=== PATIENT | male | born 1960 | race Caucasian/White ===

== ENCOUNTER 2016-08-21 14:12 | Inpatient (IN) ==
[2016-08-21] MEDS ORDERED: SALINE LOCK IV FLUID XX ONE (14:38)
[2016-08-21 15:10] LABS: ALBUMIN 4.4 g/dL (3.5-5.0); CALCIUM 8.8 mg/dL (8.8-10.2); POTASSIUM 3.6 mmol/L (3.5-5.1); TOTAL BILIRUBIN 0.5 mg/dL (0.20-1.00); TOTAL PROTEIN 7.2 g/dL (6.3-8.3)
[2016-08-21 15:12] LABS: INR 1.16 (0.86-1.15); PROTIME 15.1 Seconds (12.1-15.5); PTT PL 28.1 Seconds (22.6-43.9)
[2016-08-21] MEDS ORDERED: GLUCOPHAGE PO SCH (17:00)
[2016-08-21] MEDS: HUMULIN R (PARKWAY) SUBQ SCH ×2 (17:01→21:52)
[2016-08-21] MEDS: KLONOPIN PO SCH (17:25)
[2016-08-21] MEDS: LOVENOX SUBQ SCH (17:26)
[2016-08-21] MEDS ORDERED: CATAPRES PO ONE (17:53)
[2016-08-21] MEDS ORDERED: CATAPRES PO PRN (18:04)
--- NOTE | 2016-08-21 18:39 | HISTORY AND PHYSICAL ---
CHIEF COMPLAINT: Leg pain. Ankle swollen. HISTORY OF PRESENT ILLNESS: This is a 56-year-old, white male that historically has had great resistance to medical care. He has a great deal of anxiety towards the medical profession and medical illnesses. He has had a known history of poorly-controlled diabetes, hypertension. He has been very resistant to taking medications. Recently, however, he presented to the office on August 13. He stated that his blood pressures have been high. Blood pressure in the office at that time was 211/102. He, however, stated he felt good. He had no major complaints. He had diarrhea for several days. He had cut back on his blood pressure medicines from lisinopril 20 mg twice a day to once a day and Toprol-XL 100 mg 1 a day to 1/2 a day. Laboratory data was obtained which revealed a blood sugar of 183, potassium 2.8, creatinine of 1.9 which had previously been 0.6, and his PSA was 9.9. His blood pressure slowly declined with the reinstitution of lisinopril 20 mg b.i.d. and Toprol-XL 100 mg a day. He developed over the course of the next several days swelling of his ankles. He did have some pain in his legs but he primarily pointed to pain in the Achilles heel area. He presented back to my office on the day of admission where he was found to be in no acute distress. His blood pressure was 159/110. He did have a slight amount of edema 1+ of the ankles. He had negative Homans signs of the calves. He was sent to [facility] for Doppler flow study of the lower extremities where the Doppler revealed bilateral DVTs. He was subsequently admitted for further evaluation and therapy. PAST SURGICAL HISTORY: None. MEDICAL ILLNESSES: Recent history of hypertension, diabetes. CURRENT MEDICATIONS: Metformin 1000 mg b.i.d., lisinopril 20 mg b.i.d., Toprol-XL 100 mg daily, aspirin 81 mg daily. ALLERGIES: No known drug allergies. SOCIAL HISTORY: He is a , white male. He has 2 daughters and 1 son. He does not smoke. Occasionally he has a beer. 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 He worked 12 hour days 6 days a week. FAMILY HISTORY: His mom recently at age approximately 88 years old. He has 1 sister, Deisy, who also has diabetes. His dad at age 36 of unknown causes perhaps aspiration. PHYSICAL EXAMINATION: GENERAL: Shows a slightly obese, white male who is awake, alert, in no acute distress. VITAL SIGNS: Temperature is 97 degrees, pulse 77, respirations 18, O2 saturation 98%, blood pressure 159/100, weight 205 pounds, height 5 feet 3 inches. HEENT: TMs are clear. Pupils are equally round and reactive. Nasal mucosa is moist. Fundi benign. Oropharynx is clear. NECK: Supple with good carotid pulses. No bruits. LUNGS: Clear. No wheezes, rales, rhonchi. HEART: Regular rate and rhythm. ABDOMEN: Rotund, soft, nontender. GENITOURINARY: Normal male. Bilaterally descended testicles. No hernias. Femoral arteries show 2+ pulses. No bruits. There is no venous distention of the groin. LOWER EXTREMITIES: Show 1+ edema of the malleolar areas bilaterally. He has negative Homans signs bilaterally. The right calf measures 39.5 cm, 10 cm below the anterior tibial tubercle; the left 40 cm in the same area. There are no dilated veins, etc. There is mild tenderness in the popliteal space bilaterally left greater than the right. LABORATORY DATA: As stated, Doppler flow studies at [facility] revealed bilateral deep vein thrombosis acute. It extends above the popliteal area into the saphenous vein area. PT/INR 15.1/1.16, sodium was 141, potassium 3.6, chloride 103, CO2 21, BUN 24, creatinine 2.7, glucose 164, calcium 8.8, total bilirubin 0.5, AST 14, ALT 13, alkaline phosphatase 5, total protein 7.2, albumin 4.4, globulin 3.3. IMPRESSION: 1. A 56-year-old, white male now with acute deep vein thromboses of both lower extremities. 2. Chronic kidney disease with perhaps acute renal injury due to hypertension. Creatinine has risen from 0.6 to 2.7. 3. Long history of poorly controlled diabetes. Recent hemoglobin A1c was 9.1. 4. Elevated PSA of 9.9. 5. Hypertension poorly controlled. PLAN: 1. Admit to [facility]. 2. Bed rest. 3. Subcutaneous Lovenox q.12 hours 1 mg/kg. 4. We will hydrate. 5. Follow his renal function carefully. 6. We will do a hypercoagulation profile. 7. I see no evidence for PE or anything of that nature. 8. He will certainly need to become more compliant with his health issues. cc: Jaren Huffman MD
[2016-08-21] MEDS: TOPROL XL PO SCH (18:42)
[2016-08-21] MEDS: COUMADIN PO SCH (21:51)
[2016-08-21] MEDS: TYLENOL PO PRN (21:52)
[2016-08-21] MEDS: NS 1,000 ML IV PRN (21:52)
[2016-08-21 22:24] LABS: URINE SOURCE CLEAN CATCH
[2016-08-21 22:44] LABS: BILIRUBIN URINE NEGATIVE (NEGATIVE); BLOOD URINE TRACE (NEGATIVE); CLARITY CLEAR (CLEAR); LEUKOCYTES URINE NEGATIVE (NEGATIVE); NITRITE URINE NEGATIVE (NEGATIVE); PROTEIN URINE NEGATIVE (NEGATIVE); URINE MICROSCOPIC NEEDED? YES; UROBILINOGEN URINE NORMAL
[2016-08-21 22:54] LABS: COLOR STRAW; URINE EPITHELIAL CELLS <10 /HPF (<10); URINE RBC <10 /HPF (<10); URINE WBC <10 /HPF (<10)
[2016-08-22] MEDS: LOVENOX SUBQ SCH (05:46)
[2016-08-22 06:27] LABS: MANUAL DIFF NEEDED? NO
[2016-08-22] MEDS: HUMULIN R (PARKWAY) SUBQ SCH ×4 (06:41→21:18)
[2016-08-22 06:42] LABS: BASO% 0.1 % (0.0-0.8); EOS# 0.08 X1000 (0.0-0.7); EOS% 0.9 % (0.0-10.0); HEMATOCRIT 32.4 % (42.0-52.0); HEMOGLOBIN 10.8 g/dL (14.0-18.0); IMM GRAN# 0.06 X1000 (0.0-0.04); IMM GRAN% 0.7 % (0.0-0.5); LYMPH# 2.08 X1000 (1.2-3.4); LYMPH% 23.8 % (20.5-51.1); MCH 30.6 PG (27-31); MCHC 33.3 g/dL (33-37); MCV 91.8 FL (81-99); MONO# 1.47 X1000 (0.11-0.59); MONO% 16.8 % (1.7-9.3); MPV 11.2 FL (7.4-10.4); NEUT% 57.7 % (42.2-75.2); PLT 152 X1000 (130-400); RBC 3.53 XMIL (4.7-6.1)
[2016-08-22 07:15] LABS: ALBUMIN 3.7 g/dL (3.5-5.0); CALCIUM 8.1 mg/dL (8.8-10.2); POTASSIUM 4.4 mmol/L (3.5-5.1); TOTAL BILIRUBIN 0.4 mg/dL (0.20-1.00); TOTAL PROTEIN 6.3 g/dL (6.3-8.3)
[2016-08-22] MEDS: TOPROL XL PO SCH (08:25)
[2016-08-22] MEDS: KLONOPIN PO SCH ×3 (08:25→16:38)
[2016-08-22] MEDS ORDERED: PRINIVIL PO SCH (09:00)
--- NOTE | 2016-08-22 10:24 | PROGRESS NOTE ---
DATE: 08/22/2016 CHIEF COMPLAINT: No problems. PHYSICAL EXAMINATION: Vital signs: Temperature 98.2 degrees. Blood pressures have been 136/72, 155/84, 154/81. O2 saturations 98% on room air. Urine output yesterday was 700 mL; this morning 100 mL. LABORATORY DATA: White blood count is 8.73, hemoglobin and hematocrit 10 and 32, MCV 91.8. Chemistries sodium 141, potassium 4.4, chloride 107, CO2 22, BUN of 34, creatinine 3.3 up from 24 and 2.7 yesterday. Blood sugar this morning 121. Renal sonogram is pending. PHYSICAL EXAM: General: The patient is examined is at bedside. Patient is awake, alert. He looks good, he has no complaints. Lungs: Clear. Heart: With a regular rate and rhythm. Abdomen: Slightly rotund slightly distended. Positive bowel sounds. Nontender. Genitourinary: Normal male Musculoskeletal: Neurologically intact with no peripheral edema, clubbing or cyanosis. IMPRESSION: 1. Bilateral deep vein thrombosis of the lower extremities. Please see Doppler flow study report. 2. Acute renal failure with rising creatinine now up to 3.3, most likely related to hypertensive and diabetic nephropathy with acute injury. 3. He does have a known elevated PSA as noted in the history and physical. Patient is contemplating our recommendations to have the urologist evaluate him. We will obtain a postvoid urine this morning and follow up with the renal sonogram to be sure we do not have any postobstructive renal failure due to enlarged prostate. 4. Long time diabetes with poor control. Patient is on flat sliding scale insulin. Blood sugar this morning was 121. PLAN: 1. We will continue subcutaneous Lovenox. 2. Coumadin was started last evening. Will continue that. 3. I have discussed Mr. Bishop with Dr. Quinteros's nurse-practitioner and they will see the patient in consultation. 4. We will follow up with sonogram of the kidneys, 5. Postvoid residual. 6. Continue sliding scale insulin. 7. I have discussed all these findings with the family at bedside. cc: Jaren Huffman MD
[2016-08-22] MEDS: NS 1,000 ML IV PRN (11:33)
--- NOTE | 2016-08-22 13:30 | CONSULTATION ---
DATE OF CONSULTATION: 08/22/2016 REASON FOR ADMISSION: Bilateral deep VT. REASON FOR CONSULTATION: Acute kidney injury. CONSULTING PHYSICIAN: Dr. Huffman. HISTORY OF PRESENT ILLNESS: This is a 56-year-old gentleman with a long history of hypertension as well as diabetes. He states he has known about his hypertension for at least 10 years and has been on medication for about 4. He states that he has known about his diabetes for about 4 years as well. He denies any neuropathy or retinopathy secondary to his diabetes. He states that his blood sugars and blood pressures are fairly poorly controlled. He was seen by his primary care office on the 3rd of this month. At that time he had been having elevated blood pressure. He had been having some diarrhea. He has decreased his blood pressure medications without medical instruction at that time as well. In the office it was noted that his creatinine was 1.9. It was 0.6 less than 6 months ago and he did have an elevation of PSA. His blood pressure medications were restarted at that time. Over the course of the next several days he began having lower extremity edema and pain. He presented back to the primary's office where he was sent to have Doppler studies of bilateral lower extremities which revealed DVTs bilaterally. He was admitted to the hospital for further workup and treatment. On admission his creatinine at that time was 2.7 and today has risen to 3.3. He has stated that over the last week his urine output has become much more frequent. He does have foamy urine. He states that he has to get up at night 10-15 times to go to the bathroom. He denies any other current nausea or vomiting, and just a general feeling of malaise. PAST MEDICAL HISTORY: Past medical history as above. PAST SURGICAL HISTORY: None. CURRENT ALLERGIES: No known drug allergies. HOME MEDICATIONS: 1. Metformin. 2. Lisinopril. 3. Toprol. 4. Aspirin. FAMILY HISTORY: He has a sister who has diabetes but no family history of end- stage renal disease. SOCIAL HISTORY: He is . Denies ever smoking. Occasional ETOH. He continues to work. REVIEW OF SYSTEMS: Pertinent positives noted above in the HPI. PHYSICAL EXAMINATION: Vital Signs: Temperature 98.2 degrees, pulse regular. Blood pressure 136/72. Intake 420 mL, output 700 mL. General: This is a middle-aged gentleman resting in bed. He is awake, alert, oriented x4. He is able to give an appropriate history and assists with exam. HEENT: Normocephalic atraumatic. PERRL, conjunctivae pink. His oral mucosa is moist. Tongue is midline. Neck: Supple. Trachea midline. There is no JVD noted in a reclined position. Cardiovascular: Reveals a regular rate and rhythm. There is no murmur or gallop appreciated. Pulmonary: He has equal excursion. He has clear breath sounds. He is on room air with no increased work of breathing. Abdomen: Round, slightly distended. The patient states this is normal for him. Positive bowel sounds. : Not inspected. He is voiding. Of note postvoid residual greater than 900. Extremities: No clubbing, cyanosis or edema. There is no stigmata noted to the soles of the feet or up to the toes. He has positive pulses. He is moving all extremities and has been able to stand up without assistance. Integumentary: Skin is warm and dry. There is no rash or lesion appreciated. LAB DATA: WBC of 8.7, hemoglobin 10.8, platelets 152,000, sodium 142, potassium 4.4, chloride 107, CO2 22, BUN 34, creatinine 3.3, albumin 4.4. Alkaline phosphatase 5. ASSESSMENT AND PLAN: 1. Acute kidney injury. Obstruction. Patient does have elevated prostate- specific antigen. Patient has some episodes of nausea, vomiting and diarrhea while on lisinopril as well. The patient does have bilateral deep venous thromboses. We have ordered urine studies. A renal ultrasound was previously ordered this morning. The patient initially refused to have this done, but is now willing for the exam. He has no uremic symptoms and no indications for an emergent dialysis at this time. 2. Postvoid residual elevated prostate-specific antigen; patient had a postvoid residual reported by the nurse greater than 900. The patient is refusing a Molina. Again, we are waiting for the results of the renal ultrasound to rule out any hydronephrosis. 3. Hypertension. His lisinopril currently is held and blood pressure is being controlled with Catapres and Toprol. We agree with this and will make no change. 4. Fluid volume, he is not overloaded. 5. Electrolytes, acid-base balance, anemia. These are all within target. Thank you for the consult. Seen, data reviewed, discussed with Genesis Bass on 08/22/16. I agree with the above assessment and plan of care. rg Dictated by TIN Clemens for Austyn Quinteros MD cc: MD Jaren Camargo MD [facility]
[2016-08-22] MEDS ORDERED: LEVAQUIN PO SCH (13:45)
[2016-08-22] MEDS ORDERED: MORPHINE IV PRN (13:46)
[2016-08-22] MEDS: FLOMAX PO SCH ×2 (14:31→20:20)
[2016-08-22 14:56] LABS: UR CREAT RANDOM 37.3 mg/dL (14-26); UR PROT RANDOM 6.5 mg/dL
--- NOTE | 2016-08-22 15:14 | Diag Imaging Result Document ---
PROCEDURE NAME: US RENAL 2 (RETROPER) COMPLETE - 08/22/2016 RENAL ULTRASOUND: INDICATION: Acute renal failure. FINDINGS: The right kidney measures 13.4 x 6.6 x 6.9 cm. The left kidney measures 13.3 x 7.1 x 7.9 cm. There is moderate bilateral hydronephrosis, left greater than right. There is marked distention of the urinary bladder. Decompression is recommended. IMPRESSION: 1. Findings suspicious for bladder outlet obstruction/urinary retention and bilateral hydronephrosis. 2. Findings were discussed with Dr. Huffman. MTDD
[2016-08-22] MEDS: TYLENOL PO PRN (17:23)
[2016-08-22] MEDS: COUMADIN PO SCH (20:20)
[2016-08-22] MEDS ORDERED: AMBIEN PO PRN (20:22)
[2016-08-22] MEDS ORDERED: NORCO-5 PO PRN (20:23)
[2016-08-22] MEDS: HYTRIN PO SCH (21:19)
[2016-08-23] MEDS: NS 1,000 ML IV PRN (00:20)
[2016-08-23] MEDS: HUMULIN R (PARKWAY) SUBQ SCH ×4 (06:25→20:44)
[2016-08-23 07:07] LABS: MANUAL DIFF NEEDED? NO
[2016-08-23 07:32] LABS: BASO% 0.1 % (0.0-0.8); EOS# 0.05 X1000 (0.0-0.7); EOS% 0.6 % (0.0-10.0); HEMATOCRIT 36.3 % (42.0-52.0); HEMOGLOBIN 12.5 g/dL (14.0-18.0); IMM GRAN# 0.04 X1000 (0.0-0.04); IMM GRAN% 0.5 % (0.0-0.5); LYMPH# 1.54 X1000 (1.2-3.4); MCH 31.2 PG (27-31); MCHC 34.4 g/dL (33-37); MCV 90.5 FL (81-99); MONO# 1.05 X1000 (0.11-0.59); MONO% 13.6 % (1.7-9.3); MPV 11.1 FL (7.4-10.4); NEUT% 65.2 % (42.2-75.2); PLT 147 X1000 (130-400); RBC 4.01 XMIL (4.7-6.1)
[2016-08-23 08:06] LABS: AGAP 17; ALBUMIN 3.8 g/dL (3.5-5.0); BUN 15 mg/dL (8-22); CALCIUM 8.6 mg/dL (8.8-10.2); CHLORIDE 109 mmol/L (98-107); COSMO 295; POTASSIUM 3.8 mmol/L (3.5-5.1); SODIUM 145 mmol/L (136-145); TCO2 19 mmol/L (25-35)
[2016-08-23] MEDS: ACTOS PO SCH (09:07)
[2016-08-23] MEDS: KLONOPIN PO SCH ×3 (09:07→17:07)
[2016-08-23] MEDS: LOVENOX SUBQ SCH (09:08)
[2016-08-23] MEDS: TOPROL XL PO SCH (09:08)
[2016-08-23] MEDS: FLOMAX PO SCH ×2 (09:08→20:41)
[2016-08-23 11:45] LABS: INR 1.18 (0.86-1.15); PROTIME 15.3 Seconds (12.1-15.5)
--- NOTE | 2016-08-23 13:12 | PROGRESS NOTE ---
DATE: 08/23/2016 CURRENT TIME: 1250 hours. CHIEF COMPLAINT: Feels great. No problems. VITAL SIGNS: Temperature is 97.6 degrees, pulse 93, blood pressure has been 127/75, 121/66, 162/98, 154/85. O2 is 96% on room air. Urine output today has been 2900 mL. Yesterday was 55955 mL. LABORATORY DATA: White blood count 7.70, hematocrit and hematocrit are 12 and 36, MCV is 90.5, platelets 147,000. Sodium 145, potassium 3.8, CO2 109, BUN 15 creatinine is 1.0. Blood sugars 121, 129, 155, 232, 154. Urine culture shows no growth at this time. PHYSICAL EXAMINATION: General: The patient is awake, alert, very talkative. Feels well. Family is at bedside. Lungs: Clear. Heart: Regular rate and rhythm. Abdomen: Soft, nontender. Good femoral pulses. Genitourinary: Normal male. Indwelling Molina. Molina is draining clear urine. Musculoskeletal: No peripheral edema. IMPRESSIONS: 1. Bilateral deep vein thromboses. Now on subcutaneous Lovenox and oral Coumadin. Will begin the transition phase, stopping the Lovenox and starting Coumadin totally tomorrow. His INR today is 1.18. 2. Postobstructive renal failure due to an enlarged prostate. His creatinine has dropped from 3.3 to 1.0 following catheterization of the bladder. 3. Diabetes mellitus. Poorly controlled. Now controlled. Seems to be doing well with sliding scale insulin and oral Actos. 4. He will probably need to go home with the indwelling Molina and follow up with the urologist next week. He will have to have further evaluation regarding his elevated PSA once things have settled down. All of these things have been discussed with the family and patient at bedside. cc: Jaren Huffman MD
--- NOTE | 2016-08-23 15:39 | PROGRESS NOTE ---
DATE: 08/23/2016 SUBJECTIVE: Patient sitting up in bed. He states that he feels significantly better today. He had a Molina catheter placed yesterday and apparently diuresed greater than 10 L. OBJECTIVE: Vital Signs: Temperature 97.6 degrees, pulse 93, respiratory rate 18, blood pressure 154/85. Intake 240 mL. Output charted at 15 L. General: Middle-aged gentleman resting in bed. No acute distress. HEENT: Normocephalic, atraumatic. His oral mucosa is moist. Neck: Supple. There is no JVD. Cardiovascular: Regular rate and rhythm. There is no murmur or gallop appreciated. Pulmonary: He is clear bilaterally. He remains on room air with no increased work of breathing. Abdomen: Round, soft today. Less distended. Positive bowel sounds. : Not inspected. He has a Molina. He continues to diurese. Extremities: No clubbing , cyanosis or edema. Integumentary: Skin is warm and dry without other rash or lesion. LABORATORY DATA: WBC of 7.7, hemoglobin 12.5, creatinine 1, potassium 3.8, CO2 19. ASSESSMENT AND PLAN: Acute kidney injury secondary to hydronephrosis. He had a renal ultrasound that showed bilateral hydronephrosis yesterday. He had a bladder outlet obstruction. He had a Molina catheter placed yesterday. He began to diurese nicely and today his renal function has returned to normal. We will sign off at this time. Thank you for allowing us to participate in the care of this gentleman. If we can be of further assistance, please to not hesitate to contact us. Seen, data reviewed, discussed with Genesis Bass on 08/23/16. I agree with the above assessment and plan of care. rg Dictated by TIN Clemens for Austyn Quinteros MD cc: MD Jaren Camargo MD MTDD
[2016-08-23] MEDS: HYTRIN PO SCH (20:40)
[2016-08-23] MEDS: COUMADIN PO SCH (20:41)
[2016-08-24] MEDS: HUMULIN R (PARKWAY) SUBQ SCH ×2 (06:40→10:54)
[2016-08-24 06:41] LABS: HEMATOCRIT 36.6 % (42.0-52.0); HEMOGLOBIN 12.7 g/dL (14.0-18.0); MCH 31.4 PG (27-31); MCHC 34.7 g/dL (33-37); MCV 90.6 FL (81-99); MPV 10.6 FL (7.4-10.4); RBC 4.04 XMIL (4.7-6.1)
[2016-08-24 06:49] LABS: INR 1.47 (0.86-1.15); PROTIME 18.1 Seconds (12.1-15.5)
[2016-08-24 06:58] LABS: AGAP 12; ALBUMIN 3.8 g/dL (3.5-5.0); BUN 10 mg/dL (8-22); CALCIUM 8.3 mg/dL (8.8-10.2); CHLORIDE 107 mmol/L (98-107); COSMO 286; POTASSIUM 3.6 mmol/L (3.5-5.1); SODIUM 141 mmol/L (136-145); TCO2 22 mmol/L (25-35)
[2016-08-24] MEDS ORDERED: LEVAQUIN PO SCH (09:00)
[2016-08-24] MEDS: TOPROL XL PO SCH (09:17)
[2016-08-24] MEDS: FLOMAX PO SCH (09:17)
[2016-08-24] MEDS: KLONOPIN PO SCH (09:17)
[2016-08-24] MEDS: ACTOS PO SCH (09:18)
[2016-08-24] MEDS: LOVENOX SUBQ SCH (09:18)
--- NOTE | 2016-08-24 10:29 | PROGRESS NOTE ---
DATE: 08/24/2016 CURRENT TIME: 0930 hours. CHIEF COMPLAINT: None. OBJECTIVE: Vital signs: Temperature is 97.8 degrees. Pulse is 98, 104, and 110. Blood pressure 131/77, 115/71, 132/92. O2 sats 98% on room air. Intake and Output: Urine output for the last 24 hours is 9000 mL. LABORATORY DATA: White blood cell count 7.35. Hematocrit 12 and 36. Sodium 141. Potassium 3.6. BUN 10. Creatinine 0.8. Glucose 169. INR is 1.47. PHYSICAL EXAMINATION: General: The patient is awake and alert. is at bedside. He denies any complaints. Lungs: Clear. Heart: Regular rate and rhythm. Abdomen: Soft. He is markedly less distended. Genitourinary: Normal male. Indwelling Molina. The collecting tube is full of clear urine. Musculoskeletal: No edema. IMPRESSION: 1. Deep venous thrombosis, now on Lovenox and Coumadin. We are transitioning him to oral Coumadin. 2. Postobstructive renal failure, corrected with Molina catheter. 3. Enlarged prostate with obstructive urodynamics. I have spoken with Dr. Santos who will see the patient next . He has instructed the patient to keep his catheter in place until , remove it on morning, and then we will check a residual urine at Dr. Santos' office. 4. Diabetes mellitus, much improved. PLAN: 1. We will discharge patient today with the above instructions. 2. He will resume his home medications. 3. We will check a PT/INR in my office on Saturday. cc: Jaren Huffman MD
[2016-08-24 11:27] VITALS: BP 130/88
--- NOTE | 2016-08-24 15:57 | DISCHARGE SUMMARY ---
ADMISSION DATE: 08/21/2016 DISCHARGE DATE: 08/24/2016 PRIMARY DISCHARGE DIAGNOSIS: Bilateral deep vein thromboses. OTHER DIAGNOSES: 1. Postobstructive uropathy/renal failure. 2. Benign prostatic hypertrophy with bladder outlet obstruction. 3. Diabetes mellitus type 2 poorly controlled. 4. Hypertension poorly controlled. PRIMARY PROCEDURE PERFORMED: Doppler flow study of the lower extremities. OTHER PROCEDURES: 1. Subcutaneous Lovenox. 2. Catheterization of the bladder. 3. Renal sonogram. 4. Postvoid residual, 5. Fingerstick blood sugars/sliding scale insulin. DISPOSITION: The patient will be discharged home. He will see me on Saturday morning for PT/INR. He will see me on for removal of Molina catheter. He will see Dr. Santos afternoon for post residual urine evaluation and further evaluation and treatment per Dr. Santos. He will resume his medications. NEW MEDICATIONS: 1. [place] 5/325, 1 q.4 hours p.r.n. 2. Warfarin 5 mg at bedtime. 3. Clonidine 0.2 mg q.2 hours p.r.n. blood pressure greater than 180/100, maximum of 3 doses in 24 hours. 4. Levaquin 500 mg daily. 5. Metoprolol succinate (Toprol-XL 100 mg daily). 6. Flomax 0.4 mg b.i.d. 7. Tylenol p.r.n. for pain. 8. Clonazepam 0.5 - 1 mg p.r.n. anxiety. 9. Metformin 1000 mg b.i.d. 10. Lisinopril 20 mg daily. 11. He was instructed not to take his Maxzide. 12. He will also be given Pyridium 200 mg t.i.d. for bladder spasm and discomfort. HISTORY OF PRESENT ILLNESS: This is a 56-year-old, white male, admitted after having been found to have bilateral DVTs. Subsequently found to have bladder outlet obstruction due to prostatitis/BPH. LABORATORY DATA: At time of discharge his INR was 1.47. At time of discharge, sodium 141, potassium 3.6, BUN and creatinine were 10 and 0.8. His creatinine had reached a peak of 3.3 prior to Molina catheterization. Blood sugar at time of discharge was 169. At time of discharge white blood count was 7.35, hemoglobin and hematocrit 12 and 36. Renal sonogram demonstrated bilateral hydroureter and hydronephrosis. The bladder was tremendously distended. HOSPITAL COURSE: The patient was admitted. His creatinine continued to rise to a peak of 3.3. Patient was very resistant to diagnostic measures but a postvoid residual did reveal over 900 cc retained urine. Patient refused Molina catheterization. Eventually he agreed to catheterization which was placed without difficulty. He quickly diuresed over [address] Austyn Quinteros saw the patient in consultation who felt like the patient did indeed have postobstructive uropathy due to BPH. His creatinine returned to normal at 0.8 at time of discharge. Blood sugar came under control. Blood pressure came under control. He diuresed greatly. Dr. Santos was consulted. Arrangements will be made for him to maintain his Molina catheter for a week. He will be discharged with a leg bag. He will see me on Saturday for PT/INR. He will also see me on to have the Molina catheterization removed morning and see Dr. Santos on afternoon. All these things were discussed with family at time of discharge. cc: Jaren Huffman MD
== END 2016-08-24 12:43 | disposition home or self-care (01) ==
LOC: P.DIRADM 14:12 → SUATTDRO 14:12 → P.MEDSURG 14:17
PROVIDERS: ADMIT Family Medicine; ATTEND Family Medicine

== ENCOUNTER 2016-11-05 14:31 | Inpatient (IN) ==
[2016-11-05] MEDS ORDERED: ASPIRIN PO STA (14:36)
--- NOTE | 2016-11-05 14:42 | EKG Report ---
Test Performed on : 11/05/2016 2:41:24 PM Test Reason : CHEST PAIN Blood Pressure : / mmHG Vent. Rate : 142 BPM Atrial Rate : 142 BPM P-R Int : 122 ms QRS Dur : 082 ms QT Int : 286 ms P-R-T Axes : 053 -20 015 degrees QTc Int : 439 ms Sinus tachycardia. Minimal voltage criteria for LVH, may be normal variant Borderline ECG No previous ECGs available Unconfirmed Result
[2016-11-05] MEDS ORDERED: MOTRIN ONE ×2 (14:57→17:18)
[2016-11-05] MEDS ORDERED: NS 1,000 ML ONE (14:57)
[2016-11-05] MEDS ORDERED: TYLENOL ONE (15:01)
[2016-11-05] MEDS ORDERED: TYLENOL PO ONE (15:06)
[2016-11-05] MEDS ORDERED: NS 1,000 ML IV ONE ×2 (15:06→17:01)
[2016-11-05 15:15] LABS: BASO% 0.1 % (0.0-0.8); HEMATOCRIT 37.8 % (42.0-52.0); HEMOGLOBIN 13.2 g/dL (14.0-18.0); IMM GRAN# 0.09 X1000 (0.0-0.04); IMM GRAN% 0.5 % (0.0-0.5); LYMPH# 0.97 X1000 (1.2-3.4); MANUAL DIFF NEEDED? NO; MCH 31.1 PG (27-31); MCHC 34.9 g/dL (33-37); MCV 88.9 FL (81-99); MONO# 3.19 X1000 (0.11-0.59); MONO% 16.3 % (1.7-9.3); MPV 11.1 FL (7.4-10.4); NEUT% 78.1 % (42.2-75.2); PLT 170 X1000 (130-400); RBC 4.25 XMIL (4.7-6.1)
[2016-11-05 15:20] LABS: INR 3.15 (0.86-1.15); PROTIME 32.2 Seconds (12.1-15.5)
[2016-11-05 15:21] LABS: PTT PL 67.7 Seconds (22.6-43.9)
--- NOTE | 2016-11-05 15:29 | Diag Imaging Result Doc PS360 ---
EXAM: CHEST-2 VIEWS HISTORY: CP TECHNIQUE: COMPARISON: 04/30/2013 FINDINGS: The lungs are well expanded. The heart is not enlarged. The vessels are not distended. There are no infiltrates. No pleural effusions. IMPRESSION: No acute abnormality. Electronically signed by Elvis Gonsalez 11/05/2016 3:26 PM
[2016-11-05 15:38] LABS: AGAP 22; ALKALINE PHOSPHATASE 81 U/L (32-122); BUN 18 mg/dL (8-22); CALCIUM 8.9 mg/dL (8.8-10.2); CHLORIDE 94 mmol/L (98-107); CK PROFILE 145 U/L (24-204); COSMO 279; GOT 20 U/L (10-34); GPT 25 U/L (10-44); POTASSIUM 3.3 mmol/L (3.5-5.1); SODIUM 133 mmol/L (136-145); TCO2 18 mmol/L (25-35); TOTAL PROTEIN 7.6 g/dL (6.3-8.3)
[2016-11-05] MEDS ORDERED: GENTAMICIN 80 MG/NS 80 MG/50 ML IVPB IV ONE (15:44)
[2016-11-05] MEDS ORDERED: MAGNESIUM SULFATE 2 GM/S.W.I. 2 GM/50 ML IVPB IV ONE (15:51)
[2016-11-05 16:28] LABS: BILIRUBIN URINE NEGATIVE (NEGATIVE); BLOOD URINE 3+ (NEGATIVE); CLARITY VERY CLOUDY (CLEAR); COLOR YELLOW; LEUKOCYTES URINE 2+ (NEGATIVE); NITRITE URINE NEGATIVE (NEGATIVE); PH URINE 6.5; PROTEIN URINE 2+(100 mg/dL) mg/dL (NEGATIVE); SP GRAVITY URINE 1.015; UROBILINOGEN URINE NORMAL
[2016-11-05 16:29] LABS: URINE CAST NONE SEEN /LPF; URINE CRYSTAL NONE SEEN /HPF; URINE CULTURE PL NEEDED? YES; URINE EPITHELIAL CELLS <10 /HPF (<10); URINE SOURCE CATH; URINE WBC 20-40 /HPF (<10)
[2016-11-05] MEDS ORDERED: ZOFRAN IV PRN ×2 (17:01→17:55)
[2016-11-05] MEDS ORDERED: DILAUDID IV PRN (17:01)
--- NOTE | 2016-11-05 17:04 | PROVIDER DOCUMENTATION ---
This chart was entered by Ale Tadeo Scribe, acting as scribe for Rachel Fox MD. HPI-General Adult - General Chief Complaint: General Adult Stated Complaint: CHEST PAIN Time Seen by Provider: 11/05/16 14:44 Source: patient Allergies/Adverse Reactions: Patient Allergies Allergy/AdvReac Type Severity Reaction Status Date / Time No Known Allergies Allergy Verified 11/05/16 14:40 Home Medications: Home Medication List Medication Instructions Recorded Confirmed Last Taken Type Clonazepam [Klonopin] 0.5 - 1 mg PO BID 08/21/16 11/05/16 Unknown History Lisinopril 20 mg PO DAILY 08/21/16 11/05/16 08/21/16 History Metformin [Glucophage] 1,000 mg PO BID 08/21/16 11/05/16 08/21/16 History Metoprolol Succinate [Toprol Xl] 100 mg PO HS 08/21/16 11/05/16 08/20/16 History Hydrocodone/APAP 5 mg/325 mg 1 each PO Q4H PRN PRN #20 mg 08/24/16 11/05/16 Unknown Rx [Orient-5] Tamsulosin [Flomax] 0.4 mg PO BID #60 capsule 08/24/16 11/05/16 Unknown Rx Finasteride 5 mg PO DAILY 11/05/16 11/05/16 Unknown History Warfarin [Coumadin] 10 - 15 mg PO QHS 11/05/16 11/05/16 Unknown History - History of Present Illness -Gen Adult Nature of Presenting Problems: 56 Y/O M presents to the ER with the complain of felling shaky, with chest pain and SOB X 5 days.pt states that he uses self cathedra at home. pt states that his took his blood pressure today and it was high and also he had diarrhea this morning X2 times. pt denies any other symptoms. Onset/Duration: reports: 5 days ago Associated Symptoms: reports: chest pain, diarrhea, shortness of breath, other ( felling shaky) Review of Systems - Adult - REVIEW OF SYSTEMS - ADULT Constitutional: reports: fever. denies: chills Eyes: reports: no symptoms reported Ears, Nose, Mouth & Throat: reports: no symptoms reported Cardiovascular: reports: chest pain. denies: heart murmur, palpitations Respiratory: reports: shortness of breath. denies: cough, wheezing Gastrointestinal: reports: diarrhea. denies: abdominal pain, nausea, vomiting Genitourinary: reports: no symptoms reported Musculoskeletal: reports: no symptoms reported Integumentary: reports: no symptoms reported Neurological: reports: no symptoms reported Psychiatric: reports: no symptoms reported Endocrine: reports: no symptoms reported Hematologic/Lymphatic: reports: no symptoms reported Allergic/Immunologic: reports: no symptoms reported All Other Systems: Reviewed and Negative Past History - Adult - PAST MEDICAL HISTORY-ADULT Review of Records: reports: Old Records Reviewed, Nursing Assessment Review - PRIOR SURGERIES/PROCEDURES Surgical/Procedure History: reports: other (DVT) - IMMUNIZATION STATUS Childhood Immunizations: See Nurse Assessment Flu Vaccine: See Nurse Assessment - SOCIAL HISTORY Substance Use: alcohol Physical Exam-General - PHYSICAL EXAM-ADULT Initial Vital Signs Reviewed: Yes - CONSTITUTIONAL General Appearance: appears well, alert - EYES Eyes: PERRL/EOMI, pink conjunctivae - HEAD, EARS, NOSE, MOUTH & THROAT HENMT: moist mucous membranes, normal ENT inspection, TMs normal - NECK Neck: non-tender, full range of motion, supple - RESPIRATORY Respiratory: no pleuratic chest pain, no respiratory distress - CARDIOVASCULAR Cardiovascular: normal peripheral pulses, regular rate, rhythm - GASTROINTESTINAL (ABDOMEN) Abdominal Exam: non tender, soft - MUSCULOSKELETAL Back Exam: no CVA tenderness, no vertebral tenderness Extremity: normal range of motion, non-tender - SKIN Integumentary: normal color, normal turgor, warm/dry - NEUROLOGIC Neurologic: grossly normal, no motor/sensory deficits - PSYCHIATRIC Psych/Mental Status: normal mood/affect, normal thought content, normal thought process, oriented x 3 Progress - PLAN OF CARE/RESULTS Progress/Plan/Lab Results: Vital Signs - 8 hr 11/05/16 14:36 Temperature 103.2 F H Pulse Rate 141 H Respiratory Rate 33 H Blood Pressure 130/89 O2 Sat by Pulse Oximetry 89 L Orders Category Date Time Status Cardiac Monitoring DIRECTED Care 11/05/16 14:36 Active Saline Loc NOW Care 11/05/16 14:36 Active CHEST-2 VIEWS [RAD] Stat Exams 11/05/16 14:36 Ordered CBC WITH ELECTRONIC DIFF [HEME] Stat Lab 11/05/16 14:36 Ordered CK PROFILE [SP CHEM] Stat Lab 11/05/16 14:36 Ordered COMPREHENSIVE METABOLIC PANEL [CHEM] Stat Lab 11/05/16 14:36 Ordered MAGNESIUM [CHEM] Stat Lab 11/05/16 14:36 Ordered PRO B-NATRIURETIC PEPTIDE Stat Lab 11/05/16 14:36 Ordered PROTIME WITH INR PL [COAG] Stat Lab 11/05/16 14:[address] [COAG] Stat Lab 11/05/16 14:36 Ordered TROPONIN T Stat Lab 11/05/16 14:36 Ordered 0.9% Sodium Chloride Inj [Ns] 1,000 ml Med 11/05/16 14:57 Discontinued .ROUTE As Directed Acetaminophen [Tylenol] Med 11/05/16 15:01 Discontinued 650 mg .ROUTE .STK-MED ONE Aspirin Med 11/05/16 14:36 Discontinued 325 mg PO STAT STA Ibuprofen [Motrin] Med 11/05/16 14:57 Discontinued 800 mg .ROUTE .STK-MED ONE EKG [EKG] Stat Ther 11/05/16 14:36 Draft Result Diagrams: 11/05/16 14:53 11/05/16 14:53 - EKG 1 Time of EKG reading by physician:: 14:42 EKG Read and Signed by:: Rachel Fox EKG Interpretation (*Must complete 3 of following elements*): Abnormal Rate: 142 Rhythm: Sinus Tachycardia Comments: Abnormal ECG - XRAY 1 XRAY: Bilateral XRAY Study: Chest Impression: Normal XRAY Interpretation: no acute abnormality by radiologist - CONSULTS/PCP/HOSPITALIST Notification #1 *Consult/PCP/Hospitalist*: Dr. beltre Time Discussed: 16:57 Reason/Comments: Dr. Fox consulted about ptto Dr. Beltre Departure - Departure Date of Disposition Decision: 11/05/16 Time of Disposition Decision: 16:33 DIAGNOSIS: UTI (urinary tract infection) Disposition: HOME 01 Certified Medical Emergency: Emergent Condition: Good Additional Freetext Instructions: ED Follow Up Instructions: You have been treated by a care provider in the Emergency Department. These instructions are being provided to you so you can have an understanding of how to care for yourself upon discharge. Upon discharge from the Emergency Department, you are responsible for making arrangements for follow-up care by a physician of your choice. Take all prescribed medications as directed. Return to the Emergency Department immediately for any new or worsening symptoms. You may call the Physician Referral phone number at [phone] to obtain a list of Physicians who are taking new patients. Referrals and Follow-Ups: Jaren Huffman MD [Primary Care Provider] - - Critical Care Note This patient required my direct & personal management of CC.: No This chart was documented by the indicated scribe, (Ale Tadeo, Uyen) and accurately reflects the services I performed and decisions made by me, Rachel Fox MD, as attested by the provider's signature.
[2016-11-05] MEDS ORDERED: MOTRIN PO ONE (17:22)
[2016-11-05] MEDS ORDERED: B & O 15A SUPP PR PRN (17:55)
[2016-11-05] MEDS ORDERED: PYRIDIUM PO PRN (17:55)
[2016-11-05] MEDS ORDERED: COUMADIN PO SCH (21:00)
[2016-11-05] MEDS: FLOMAX PO SCH (21:17)
[2016-11-05] MEDS: KLONOPIN PO SCH (21:17)
[2016-11-05] MEDS: HUMALOG DOSE (PARKWAY) SUBQ SCH (21:17)
--- NOTE | 2016-11-05 21:26 | HISTORY AND PHYSICAL ---
PRIMARY CARE PHYSICIAN: Dr. Jaren Huffman. CHIEF COMPLAINT: Generalized weakness, dizziness. HISTORY OF PRESENT ILLNESS: This is a 56-year-old male with a history of diabetes mellitus, hypertension, BPH, with bladder outlet obstruction, currently undergoing self- intermittent catheterization, who presented to the emergency room complaining of 3 days of generalized weakness, dizziness upon standing, and diarrhea that started this morning. He denies any known sick contacts. He denied any chest pain, palpitations, syncope, cough, subjective fever, chills, generalized body aches. He was found to have a temperature of a 103.2 degrees, with a heart rate of 141 on arrival. Room air saturations of 89. He was given IV hydration. Blood and urine cultures were obtained. He was given gentamicin, and he is being admitted for further evaluation and treatment. PAST MEDICAL HISTORY: Hypertension, diabetes mellitus, BPH with bladder outlet obstruction, bilateral lower extremity DVT, currently on Coumadin, transient renal failure secondary to obstruction. SOCIAL HISTORY: He denies alcohol, tobacco, or illicit drug use. He does live at home with family members. ALLERGIES: No known drug allergies. HOME MEDICATIONS: Warfarin 10 mg alternating with 15 mg every other night, Flomax 0.4 b.i.d., Toprol-XL 100 at bedtime, metformin 1000 b.i.d., lisinopril 20 mg daily, [place] 5/325 q.4 hours p.r.n., finasteride 5 daily, Klonopin 0.5 p.o. b.i.d. REVIEW OF SYSTEMS: A 14-point review of systems was discussed with the patient, with pertinent positives being generalized weakness, dizziness, diarrhea, some intermittent shortness of breath during episodes of dizziness. All other systems are negative. PHYSICAL EXAMINATION: GENERAL: This is a 56-year-old male who is lying in the bed, in no distress. VITAL SIGNS: Blood pressure 142/77, with a heart rate of 101, respirations 20, oxygen saturations are 99% on 2 L nasal cannula, 97-98% on room air, with a temperature of 101 degrees oral. HEENT: Head is normocephalic, atraumatic. Pupils equal, round, react to light. EOMs are intact. Sclerae are nonicteric. Mucous membranes are moist. NECK: Supple. Trachea midline. CARDIOVASCULAR: Regular rate and rhythm. S1, S2 appreciated. PULMONARY: Breath sounds are clear. No increased work of breathing noted. GASTROINTESTINAL: Soft, nontender, nondistended, with bowel sounds in all 4 quadrants. BACK: No CVAT. No spine tenderness. MUSCULOSKELETAL: Good range of motion of joints. EXTREMITIES: No clubbing, cyanosis, or edema. Calves are nontender. Pulses are palpable x4. SKIN: Warm and dry. DIAGNOSTIC DATA: WBC is 19.5, with hemoglobin 13.2, hematocrit 37.8, platelets of 170,000. INR is 3.15. Sodium is 133, potassium 3.3, BUN 18, creatinine 1.2, with a glucose of 283. Magnesium 1. Urinalysis has 2+ protein, with 10-20 microscopic red blood cells, 20-40 microscopic white blood cells, and 3+ bacteria. Chest x-ray revealed no acute processes. ASSESSMENT AND PLAN: 1. Febrile illness. Patient denies any known sick contacts. He had just generalized weakness, no specific symptoms. He did begin self-cath last , and on his microscopic urinalysis, he did have 20-40 white blood cells, and 3+ bacteria. Urine cultures and blood cultures have been obtained. He was treated with gentamicin. We will continue this and follow. 2. Presumed urinary tract infection. As stated above. 3. Diabetes mellitus. He will be placed on pattern blood glucose and sliding scale insulin. 4. History of hypertension. We will identify his home medicines and continue. 5. Leukocytosis. This is most likely from a urinary tract infection. We will continue antibiotics with blood cultures. Urine cultures pending. 6. Hypomagnesemia. He was replaced in the emergency room. We will check later tonight and replace again as needed. 7. Hypokalemia. We will trend electrolytes and replete as appropriate. 8. Chronic anticoagulation. INR is 3.15. He does have a history of deep venous thrombosis with target INR of 2-3. We will hold his Coumadin tonight and check daily INRs. 9. History of deep venous thromboses, bilateral lower extremities. We will continue anticoagulation as appropriate. 10. Benign prostatic hypertrophy with bladder outlet obstruction. We will continue his Flomax as well as his finasteride. He will self-cath every 4-6 hours as prehospitalization. Further treatments pending hospital course. Dictated by TIN Cote for Chato Beltre MD cc: TIN Cote MD
[2016-11-06] MEDS ORDERED: TYLENOL PO ONE (00:53)
[2016-11-06 06:23] LABS: INR 3.87 (0.86-1.15); PROTIME 37.6 Seconds (12.1-15.5)
[2016-11-06 06:26] LABS: HEMATOCRIT 33.4 % (42.0-52.0); HEMOGLOBIN 11.8 g/dL (14.0-18.0); MCH 31.6 PG (27-31); MCHC 35.3 g/dL (33-37); MCV 89.3 FL (81-99); MPV 11.3 FL (7.4-10.4); RBC 3.74 XMIL (4.7-6.1)
[2016-11-06 06:30] LABS: AGAP 15; ALBUMIN 3.2 g/dL (3.5-5.0); ALKALINE PHOSPHATASE 87 U/L (32-122); BUN 19 mg/dL (8-22); CALCIUM 8.5 mg/dL (8.8-10.2); CHLORIDE 99 mmol/L (98-107); COSMO 282; GOT 20 U/L (10-34); GPT 23 U/L (10-44); MAGNESIUM 1.5 mg/dL (1.5-2.7); SODIUM 134 mmol/L (136-145); TCO2 20 mmol/L (25-35); TOTAL PROTEIN 6.4 g/dL (6.3-8.3)
[2016-11-06] MEDS ORDERED: DILAUDID IV PRN (06:47)
[2016-11-06] MEDS ORDERED: PYRIDIUM PO PRN (08:03)
[2016-11-06] MEDS: ZOSYN 3.375 GM/NS 3.375 GM/50 ML IVPB IV SCH ×3 (08:58→21:02)
[2016-11-06] MEDS: PROSCAR PO SCH (08:59)
[2016-11-06] MEDS: PRINIVIL PO SCH (08:59)
[2016-11-06] MEDS: FLOMAX PO SCH ×2 (08:59→21:05)
[2016-11-06] MEDS: KLONOPIN PO SCH ×2 (08:59→21:05)
[2016-11-06] MEDS: GLUCOPHAGE PO SCH ×2 (08:59→17:13)
--- NOTE | 2016-11-06 09:05 | PROGRESS NOTE ---
DATE: 11/06/2016 SUBJECTIVE: Patient without any complaints. Notes that he did have a fever last night but otherwise feels okay. OBJECTIVE: Vital Signs: Temperature 98, T-max 103.6 degrees, pulse 100, respiratory 16, BP 131/73, O2 saturation 97% on room air. General: The patient is awake, alert. He is in no respiratory distress. He is feeling better. HEENT: Normocephalic, atraumatic. ALEJANRDO. Neck: Supple. CV: Regular rate. Chest: Clear. Abdomen: Soft. Extremities: Moves all extremities. Neurologic: No focal changes. Skin: Warm and dry. No rashes. ASSESSMENT: 1. Gram-negative cody urinary tract infection. 2. Sepsis with fever and a urinary infection. 3. Diabetes. 4. Obesity. 5. Hypertension. 6. BPH requiring in and out catheterization which is likely where the infection came from. PLAN: We will continue patient's home medications. We will decrease his Coumadin dosing in half until his INR returns back to normal. If it stays elevated then we will probably hold his Coumadin. We will start on Zosyn and further orders as needed. cc: Chato Beltre MD
[2016-11-06] MEDS: MOTRIN PO PRN (10:45)
[2016-11-06] MEDS: HUMALOG DOSE (PARKWAY) SUBQ SCH ×4 (11:15→21:07)
[2016-11-06] MEDS ORDERED: TUMS EXTRA STRENGTH PO PRN (12:05)
[2016-11-06] MEDS ORDERED: GENTAMICIN 80 MG/NS 80 MG/50 ML IVPB IV SCH (14:00)
[2016-11-06] MEDS: TYLENOL PO PRN (17:57)
[2016-11-06] MEDS ORDERED: GENTAMICIN IV PER PHARMACY MISC SCH (19:15)
[2016-11-06] MEDS ORDERED: COUMADIN PO SCH ×2 (21:00)
[2016-11-06] MEDS: GENTAMICIN IV SCH (23:07)
[2016-11-06] MEDS: NS IV SCH (23:07)
[2016-11-07] MEDS: ZOSYN 3.375 GM/NS 3.375 GM/50 ML IVPB IV SCH ×3 (02:31→16:56)
[2016-11-07] MEDS: TYLENOL PO PRN ×3 (03:18→23:00)
[2016-11-07] MEDS: HUMALOG DOSE (PARKWAY) SUBQ SCH ×4 (06:39→21:59)
[2016-11-07 07:00] LABS: HEMATOCRIT 32.1 % (42.0-52.0); HEMOGLOBIN 11.2 g/dL (14.0-18.0); MCH 30.9 PG (27-31); MCHC 34.9 g/dL (33-37); MCV 88.4 FL (81-99); MPV 11.8 FL (7.4-10.4); RBC 3.63 XMIL (4.7-6.1)
[2016-11-07 07:30] LABS: AGAP 17; ALBUMIN 2.9 g/dL (3.5-5.0); ALKALINE PHOSPHATASE 96 U/L (32-122); BUN 17 mg/dL (8-22); CALCIUM 8.7 mg/dL (8.8-10.2); CHLORIDE 98 mmol/L (98-107); COSMO 275; GOT 23 U/L (10-34); GPT 26 U/L (10-44); POTASSIUM 2.9 mmol/L (3.5-5.1); SODIUM 134 mmol/L (136-145); TCO2 19 mmol/L (25-35); TOTAL PROTEIN 6.4 g/dL (6.3-8.3)
[2016-11-07 08:08] LABS: INR 4.52 (0.86-1.15); PROTIME 42.3 Seconds (12.1-15.5)
[2016-11-07] MEDS: GLUCOPHAGE PO SCH ×2 (08:10→16:56)
[2016-11-07] MEDS: KLONOPIN PO SCH ×2 (08:11→21:59)
[2016-11-07] MEDS: MOTRIN PO PRN (08:11)
[2016-11-07] MEDS: PROSCAR PO SCH (08:11)
[2016-11-07] MEDS: PRINIVIL PO SCH (08:11)
[2016-11-07] MEDS: FLOMAX PO SCH ×2 (08:11→21:59)
[2016-11-07] MEDS ORDERED: NS 1,000 ML ONE (09:49)
[2016-11-07] MEDS: CULTURELLE PO SCH ×2 (09:58→21:59)
[2016-11-07] MEDS: POTASSIUM CHLORIDE 20 MEQ/SWI 20 MEQ/100 ML IVPB IV SCH ×2 (09:58→13:30)
--- NOTE | 2016-11-07 12:15 | PROGRESS NOTE ---
DATE: 11/07/2016 SUBJECTIVE: The patient states that he is feeling better. He has had no further dizzy spells. OBJECTIVE: Vital Signs: Blood pressure is 122/62 with a heart rate of 100, respirations are 20, temperature is 99.2 degrees with room air saturations of 95-98%. Cardiovascular: Regular rate and rhythm. S1 and S2 are appreciated. Pulmonary: Breath sounds are clear with no increased work of breathing noted. Gastrointestinal: Abdomen is soft, nontender, nondistended with bowel sounds in all 4 quadrants. Extremities: No clubbing, cyanosis, or edema. Calves are nontender and pulses are palpable x4. Neurologic: He is alert and oriented x3 with cranial nerves 2-12 grossly intact. LABS: WBC is 12.1, with a hemoglobin of 11.2, hematocrit 32 and platelets of 130,000. INR is 4.52. Sodium is 134, potassium 2.9, BUN 17, creatinine 0.9, with a glucose is ranging from 180- 250. Urine culture revealed Klebsiella pneumoniae. ASSESSMENT: 1. Klebsiella UTI. 2. Sepsis with fever and Klebsiella UTI. 3. Diabetes. 4. Obesity. 5. Hypertension. 6. BPH requiring self cath every 6 hours. PLAN: Will continue with his current medication regimen although we will hold his Coumadin for now as his INR is up to 4.5. We will trend the INR daily. Further treatments. Dictated by TIN Cote for Chato Beltre MD cc: TIN Cote MD
[2016-11-07] MEDS ORDERED: LEVAQUIN 750 MG/D5W 750 MG/150 ML IVPB IV SCH (18:00)
[2016-11-07] MEDS ORDERED: COUMADIN PO SCH (21:00)
[2016-11-07] MEDS ORDERED: MOTRIN PO PRN (21:44)
[2016-11-07] MEDS: GENTAMICIN IV SCH (22:00)
[2016-11-07] MEDS: NS IV SCH (22:00)
[2016-11-08] MEDS: NORCO-5 PO PRN ×2 (02:18→11:56)
[2016-11-08] MEDS: HUMALOG DOSE (PARKWAY) SUBQ SCH ×2 (06:27→11:52)
[2016-11-08 06:48] LABS: HEMATOCRIT 28.6 % (42.0-52.0); HEMOGLOBIN 10.4 g/dL (14.0-18.0); RBC 3.27 XMIL (4.7-6.1)
[2016-11-08 06:49] LABS: MCH 31.8 PG (27-31); MCHC 36.4 g/dL (33-37); MCV 87.6 FL (81-99); MPV 11.2 FL (7.4-10.4)
[2016-11-08 07:00] LABS: AGAP 16; ALBUMIN 2.9 g/dL (3.5-5.0); ALKALINE PHOSPHATASE 123 U/L (32-122); BUN 16 mg/dL (8-22); CALCIUM 8.4 mg/dL (8.8-10.2); CHLORIDE 98 mmol/L (98-107); COSMO 273; GOT 36 U/L (10-34); GPT 31 U/L (10-44); POTASSIUM 2.9 mmol/L (3.5-5.1); SODIUM 134 mmol/L (136-145); TCO2 20 mmol/L (25-35); TOTAL PROTEIN 6.7 g/dL (6.3-8.3)
[2016-11-08 07:51] LABS: INR 4.47 (0.86-1.15)
[2016-11-08] MEDS: PRINIVIL PO SCH (08:19)
[2016-11-08] MEDS: CULTURELLE PO SCH (08:19)
[2016-11-08] MEDS: GLUCOPHAGE PO SCH (08:19)
[2016-11-08] MEDS: FLOMAX PO SCH (08:19)
[2016-11-08] MEDS: PROSCAR PO SCH (08:19)
[2016-11-08] MEDS: KLONOPIN PO SCH (08:19)
--- NOTE | 2016-11-08 08:47 | PROGRESS NOTE ---
DATE: 11/08/2016 SUBJECTIVE: Patient overall is feeling better. Still having low-grade fevers with a T-max of 100.3. Denies any chest pain, palpitations. Denies any fevers or chills. Still trying to do intermittent in and out catheterization. Denies any nausea, vomiting. Denies any GI or issues. PHYSICAL: Vital Signs: T-max 100.3, pulse 89-102, respiratory 21, BP 153/88, saturation 94% on room air. General: Patient is awake, alert, currently in no respiratory distress. Pleasant to talk with. Neck: Supple. Cardiovascular: Regular rate. Chest: Clear. Abdomen: Soft, nondistended, nontender. No flank pain. Extremities: Moves all extremities. No edema. Neurologic: No changes. DIAGNOSTIC DATA: WBCs 7, hemoglobin and hematocrit 10 and 29. INR is 4.4. Potassium 2.9. Albumin 2.9. ASSESSMENT: 1. Mild protein calorie malnutrition. 2. Urinary tract infection with Klebsiella pneumonia. 3. Septicemia with gram-negative rods. Assume is Klebsiella as well, although no final diagnosis. 4. Leukocytosis, resolved. White count 19 on admit, currently down to 7. 5. Hypercoagulopathy, patient INR is 4.4. He is stable. He is not bleeding. His Coumadin has been held. 6. Benign prostatic hypertrophy requiring intermittent in and out catheterization. Discussed with patient the importance of doing this on a regular basis. 7. Hypomagnesemia, resolved. 8. Hypertension. 9. Diabetes. PLAN: Will stop gentamicin today after this dose. We will continue treatment with ibuprofen, Tylenol p.r.n. We will change to p.o. Levaquin as he is highly sensitive to Levaquin, and will follow. Maybe home this afternoon if he is doing better. Otherwise, certainly by tomorrow. He will need to stay on Levaquin for another 2 weeks at home. cc: Chato Beltre MD
[2016-11-08] MEDS ORDERED: LEVAQUIN PO SCH (09:00)
[2016-11-08 13:20] VITALS: BP 138/86
[2016-11-08] MEDS: TYLENOL PO PRN (13:28)
--- NOTE | 2016-11-09 11:47 | DISCHARGE SUMMARY ---
ADMISSION DATE: 11/05/2016 DISCHARGE DATE: 11/08/2016 DIAGNOSES: 1. Klebsiella urinary tract infection. 2. Klebsiella septicemia. 3. Leukocytosis, resolved. 4. Hypercoagulopathy secondary to Levaquin. 5. Benign prostatic hypertrophy with bladder outlet obstruction requiring intermittent catheterization. 6. Hypomagnesemia, resolved. 7. Hypertension. 8. Diabetes mellitus. HOSPITAL COURSE: Mr. Bishop presented to the emergency room complaining of generalized weakness and dizziness. He had a temperature of a 103.2 degrees on arrival with O2 saturations of 89 to 90%. He was found to be septic secondary to Klebsiella UTI and septicemia for which he was covered with gentamicin and Levaquin, as well as Zosyn. He did spike temps maxing 102 and 103 for the first 18 hours. Gentamicin was added to his antibiotic regimen and temps have come down with a T-max of 100 degrees over the last 18 hours. He denies any pain or any symptoms at present. States he feels better than he has in quite some time. We did continue his home medication regimen which he will continue on discharge. I did discuss with the patient the importance of SIC as instructed, that this should be done at least every 6 hours. He did state that Dr. Matta had instructed him to cath every 6 hours, although he had only been cathing twice a day. We did discuss the need regarding future bladder function as well as recurring UTIs and in the hospitalization he has been cathing every 6 hours and doing well. He will continue this on discharge. PHYSICAL EXAMINATION: Cardiovascular: Regular rate and rhythm. S1 and S2 appreciated. Pulmonary: Breath sounds are clear with no increased work of breathing noted. Gastrointestinal: Abdomen is soft, nontender, nondistended with bowel sounds in all 4 quadrants. Back: No CVAT. No spine tenderness. Musculoskeletal: Good range of motion to joints. Extremities: No clubbing, cyanosis, or edema. Calves are nontender. Pulses are palpable x4. Neurologic: He is alert orient x3. Cranial nerves 2 through 12 grossly intact. Discharge Vital Signs: Blood pressure is 138/80 with a heart rate of 91, respirations are 20, temperature is 99 degrees, with room air saturations of 94 to 96%. DISCHARGE MEDICATIONS: 1. Pyridium 1 tablet p.r.n. as instructed. 2. Klonopin 0.5 b.i.d. 3. Finasteride 5 daily. 4. [place] 5/325 q.4 hours p.r.n. 5. Toprol-XL 100 mg at bedtime. 6. Glucophage 1000 mg p.o. b.i.d. 7. Lisinopril 20 mg daily. 8. Flomax 0.4 p.o. b.i.d. 9. Levaquin 750 mg p.o. daily for ten days. 10. [place] 1 twice a day. He is to self cath every 6 hours as instructed. FOLLOW-UP: 1. He needs to call Dr. Matta's office Saturday and informed them of his hospitalization and follow up. 2. Dr. Jaren Huffman. He will have an INR drawn [facility] and then he will receive instructions from Dr. Huffman regarding his warfarin dosing. The patient is on Coumadin for PE and DVT. He had an INR of 3.15 on admission with a target of 2- 3. After starting Levaquin his INR has come up. It peaked at 4.52 and this morning it is 4.47. We have been holding warfarin. I did discuss with the patient that these levels are usually about 48 hours behind and that it may go up farther before the level comes down. He is to hold his warfarin until he gets further instructions from Dr. Huffman. He is being discharged home in stable condition with family members. TIME SPENT: This is a greater than 30 minute discharge. Dictated by TIN Cote for Chato Beltre MD cc: TIN Cote MD
== END 2016-11-08 14:03 | disposition home or self-care (01) ==
LOC: P.ED 14:31 → P.MEDSURG 14:32
PROVIDERS: ATTEND Family Medicine